=== PATIENT | female | born 2000 | race Two or more races ===

== ENCOUNTER 2025-03-10 21:20 | Emergency (ER) | payer OTHER ==
[~2025-03-10] VITALS: Ht 154.9 cm; Wt 68.0 kg
[2025-03-10] MEDS ORDERED: PRENATAL MULTI1 EAC3 PO (22:06)
[2025-03-11 00:09] LABS: PH,URINE 6.5 (5.0-8.0); URINE APPEARANCE Clear; URINE BILIRRUBIN Negative (NEGATIVE); URINE BLOOD Large; URINE COLOR Yellow; URINE GLUCOSE Negative (NEGATIVE); URINE KETONE Negative (NEGATIVE); URINE LEUKOCYTE Moderate; URINE NITRATE Negative; URINE PROTEIN Negative (NEGATIVE); URINE UROBILINOGEN 0.2 E.U./dl
[2025-03-11 00:13] LABS: URINE EPITHELIAL CELLS 25.9 uL (0.0-38.8); URINE RBC 6.7 uL (0.0-20.8); URINE WBC 81.2 uL (0.0-23.2)
[2025-03-11 00:18] LABS: BASO % 0.5 % (0.1-1.2); EOS # 0.24 (0.04-0.54); EOS % 3.1 % (0.7-7.0); HEMATOCRIT 38.7 % (34.1-44.9); HEMOGLOBIN 13.1 g/dL (11.2-15.7); LYMPH # 2.15 (1.18-3.74); LYMPH % 27.4 % (19.3-53.1); MEAN CORPUSCULAR HEMOGLOBIN 29.3 pg (25.6-32.2); MONO # 0.76 (0.24-0.82); MONO % 9.7 % (4.7-12.5); NEUT # 4.63 (1.56-6.13); NEUT % 58.9 % (34.0-71.1); PLATELET COUNT 279 K/uL (163-369); RED BLOOD COUNT 4.47 M/uL (3.93-5.22); RED CELL DISTRIBUTION WIDTH 12.7 % (11.6-14.4)
== END 2025-03-11 03:36 ==
LOC: ER 21:28
PROVIDERS: General Practice
DX: O20.8 Other hemorrhage in early pregnancy (principal); Z3A.01 Less than 8 weeks gestation of pregnancy; N93.9 Abnormal uterine and vaginal bleeding, unspecified

== ENCOUNTER 2025-03-22 10:00 | Emergency (ER) | payer OTHER ==
[~2025-03-22] VITALS: Ht 154.9 cm; Wt 70.8 kg
[~2025-03-22 10:00] MED LIST: PRENATAL MULTI1 EAC3 PO
[2025-03-22 11:28] LABS: BASO % 0.2 % (0.1-1.2); EOS # 0.11 (0.04-0.54); EOS % 1.3 % (0.7-7.0); HEMATOCRIT 41.3 % (34.1-44.9); HEMOGLOBIN 13.6 g/dL (11.2-15.7); LYMPH # 1.63 (1.18-3.74); LYMPH % 19.8 % (19.3-53.1); MEAN CORPUSCULAR HEMOGLOBIN 28.9 pg (25.6-32.2); MONO # 0.84 (0.24-0.82); MONO % 10.2 % (4.7-12.5); NEUT # 5.62 (1.56-6.13); NEUT % 68.1 % (34.0-71.1); PLATELET COUNT 264 K/uL (163-369); RED BLOOD COUNT 4.71 M/uL (3.93-5.22); RED CELL DISTRIBUTION WIDTH 12.9 % (11.6-14.4)
[2025-03-22 12:20] LABS: PH,URINE 7.5 (5.0-8.0); URINE APPEARANCE Clear; URINE BILIRRUBIN Negative (NEGATIVE); URINE BLOOD Moderate; URINE COLOR Yellow; URINE GLUCOSE Negative (NEGATIVE); URINE KETONE Negative (NEGATIVE); URINE LEUKOCYTE Moderate; URINE NITRATE Negative; URINE PROTEIN Negative (NEGATIVE); URINE UROBILINOGEN 0.2 E.U./dl
[2025-03-22 12:21] LABS: URINE BACTERIA 1868.8 uL (0.0-1933); URINE EPITHELIAL CELLS 34.9 uL (0.0-38.8); URINE RBC 9.4 uL (0.0-20.8); URINE WBC 54.3 uL (0.0-23.2)
[2025-03-22 12:45] LABS: CALCIUM 9.6 mg/dL (8.5-10.1); CREATININE SERUM 0.54 mg/dL (0.55-1.02); GFR 136.47; POTASSIUM 4.02 mEq/L (3.5-5.1)
== END 2025-03-22 14:18 | disposition home or self-care (01) ==
LOC: ER 10:00
PROVIDERS: Emergency Medicine
DX: O20.9 Hemorrhage in early pregnancy, unspecified (principal); Z3A.01 Less than 8 weeks gestation of pregnancy